=== PATIENT | female | born 1945 | race Caucasian/White ===

== ENCOUNTER → 2024-12-12 | Outpatient (CLI) | payer OTHER, MEDICAID, SELFPAY ==
--- NOTE | 2024-12-12 13:00 | XR_ITS ---
Examination: Bone densitometry Date and time of exam:December 12, 2024 1331 hours INDICATIONS: Menopause age 46, personal history rheumatoid arthritis, family history father hip fracture, levothyroxine 20 years Technique: Lumbar spine and hip total bone mineralization values of an calculated. Peak reference and age match control results have been displayed. Findings: Lumbar spine total bone mineralization is1.145 gm/cm2. This is 0.9 standard deviations above peak reference. This is 3.6 standard deviations above age-matched controls. Hip total bone mineralization is 0.874 gm/cm2 This is 1.6 standard deviations below peak reference. This is 1.5 standard deviations above age-matched controls Impression: There is normal mineralization based on lumbar spine measurements. There is osteopenia based on hip measurements
== END | disposition home or self-care (01) ==
PROVIDERS: PCP Family Medicine; Referring Provider Family Medicine; Visit Provider Family Medicine
DX: M85.88 Other specified disorders of bone density and structure, other site (principal)
CPT/HCPCS: 77080

== ENCOUNTER 2025-06-21 19:46 | Emergency (ER) | payer MEDICARE, MEDICAID, SELFPAY ==
[2025-06-21 20:14] VITALS: BP 120/69; PULSE 90; RESP 18; TEMP 36.9; O2SAT 96
--- NOTE | 2025-06-21 20:17 | XR_ITS ---
Examination: Knee, left, 3 views Technique: Knee AP, lateral, oblique 3 views Date and time of exam: June 21, 2025, 23 2 hours INDICATIONS: Patient fell today with injury to the knee, knee pain. FINDINGS: Advanced osteoarthritis medial joint space No fracture 17 mm posterior ossified joint body Moderate to large knee effusion IMPRESSION: No acute fracture Moderate to large knee effusion, seen with internal derangement of the knee
[2025-06-21] MEDS: IBUPROFEN TAB 600 MG TABLET PO (20:26)
--- NOTE | 2025-06-21 21:29 | PD.EDFALL ---
ED Fall Injury RME/HPI General Chief Complaint: Fall Stated Complaint: FELL, LEFT HIP AND KNEE PAIN Time Seen by Provider: 06/21/25 20:15 Source: patient and family Arrival date/time: 06/21/25 19:46 Mode of arrival: wheelchair Limitations: other (Patient is hard of hearing) RME / HPI Location of injury - extremities: Left: knee Severity: moderate Severity scale (1-10): 6 RME / HPI Narrative: This patient is a pleasant 80-year-old female who arrives to the ED today for evaluation left knee pain concerns status post ground-level fall yesterday while at home. Patient had a mechanical fall and landed on her left knee. Caregiver states the patient has not been able to ambulate. Swelling noted at initial evaluation. Patient denies any additional trauma. No head trauma. No blood loss. Related Data Home Medications ?Medication ?Instructions ?Recorded ?Confirmed amitriptyline 25 mg tablet 25 mg PO HS 08/04/23 08/04/23 amlodipine 5 mg tablet 5 mg PO DAILY 08/04/23 08/04/23 aspirin 81 mg capsule,delayed 81 mg PO DAILY 08/04/23 08/04/23 release atorvastatin 20 mg tablet 20 mg PO DAILY 08/04/23 08/04/23 budesonide-formoterol HFA 80 2 puff inhalation BID 08/04/23 08/04/23 mcg-4.5 mcg/actuation aerosol inhaler (Symbicort) cholecalciferol (vitamin D3) 125 125 mcg PO DAILY 08/04/23 08/08/23 mcg (5,000 unit) tablet (Vitamin D3) hydrochlorothiazide 12.5 mg tablet 12.5 mg PO DAILY 08/04/23 08/04/23 levothyroxine 88 mcg tablet 88 mcg PO HS 08/04/23 08/04/23 lisinopril 5 mg tablet 5 mg PO QDAY 08/04/23 08/04/23 omeprazole 40 mg capsule,delayed 40 mg PO DAILY 08/04/23 08/04/23 release acetaminophen 650 mg 650 mg PO HS 08/08/23 08/08/23 tablet,extended release albuterol sulfate 90 mcg/actuation 2 puff inhalation QID PRN 08/08/23 08/08/23 aerosol inhaler Shortness Of Breath Or Wheezing budesonide-formoterol HFA 80 1 puff inhalation BID 08/08/23 08/08/23 mcg-4.5 mcg/actuation aerosol inhaler (Symbicort) Previous Rx's ?Medication ?Instructions ?Recorded acetaminophen 500 mg tablet 500 mg PO Q4H PRN fever or pain 06/21/25 (Tylenol Extra Strength) #30 tabs Allergies Allergy/AdvReac Type Severity Reaction Status Date / Time hydromorphone (From Dilaudid) Allergy Verified 06/21/25 19:48 Sulfa (Sulfonamide Allergy Verified 06/21/25 19:48 Antibiotics) Review of Systems Review of Systems Systems Reviewed: All systems reviewed, normal except as documented Past Medical History Past Medical History NEUROLOGIC: Positive Neurological Disorders and Transient Ischemic Attacks (TIA); Negative Cerebrovascular Accident, Dementia, Alzheimer's Disease, Parkinson's Disease, Brain Tumor, Meningitis, Seizures, Epilepsy, Multiple Sclerosis, Cerebral Palsy, Amyotrophic Lateral Sclerosis (ALS/Cookie Gehrig's), Guillain-Schulenburg Syndrome, Spina Bifida, Paralysis, Peripheral Neuropathy, Britton's Palsy, Subdural Hematoma, Migraine, Head Trauma, Spinal Cord Injury or Traumatic Brain Injury CARDIAC: Positive Cardiac Disorders, Hypercholesterolemia, Aneurysm (5 YEARS AGO TO NECK), Edema (ANKLES) and Hypertension; Negative Myocardial Infarction, Cardiac Arrhythmia, Atrial Fibrillation, Angina, Heart Murmur, Coronary Artery Disease, Atherosclerotic Heart Disease, Peripheral Vascular Disease, Congestive Heart Failure, Congenital Heart Disease, Valvular Heart Disease, Rheumatic Fever, Cardiomyopathy, Pericarditis, Cellulitis, Deep Vein Thrombosis, Hypotension or Varicose Veins RESPIRATORY: Positive Asthma; Negative Chronic Obstructive Pulmonary Disease (COPD), Bronchitis, Emphysema, Pneumonia, Pulmonary Fibrosis, Cystic Fibrosis, Tuberculosis, Pulmonary Embolism, Pulmonary Edema or Sleep Apnea GASTROINTESTINAL: Positive Gastrointestinal Disorders, Diverticulitis and Gastroesophageal Reflux Disease; Negative Hepatitis, Cirrhosis, Pancreatitis, Celiac Disease, Gall Bladder Disease, Gastrointestinal Bleed, Esophageal Varices, Nye's Esophagus, Colitis, Ulcerative Colitis, Diverticulosis, Ulcer, Colorectal Cancer, Irritable Bowel, Crohn's Disease, Obstructive Bowel, Hiatal Hernia, Hemorrhoids or Obesity GENITOURINARY: Positive Genitourinary Disorders (INCONTINENCE) and Kidney Stones; Negative Renal Disease, Polycystic Kidney Disease, Neurogenic Bladder, Inguinal Hernia or Dialysis REPRODUCTIVE: Positive Previous Pregnancies (); Negative Breast Cancer, Endometriosis, Genital Herpes, Gonorrhea, Pelvic Inflammatory Disease, Syphilis or Uterine Prolapse MUSCULOSKELETAL: Positive Musculoskeletal Disorders, Arthritis and Gout; Negative Muscular Dystrophy, Myasthenia Gravis, Marfan's Syndrome, Bone Cancer, Rheumatoid Arthritis, Osteoporosis, Degenerative Disk Disease, Scoliosis, Carpal Tunnel Syndrome, Fibromyalgia, Fractures, Degenerative Joint Disease, Osteomyelitis or Poliovirus ENT: Positive Deafness (HEARING IMPAIRED); Negative Cataracts, Glaucoma, Blind, Retinal Detachment, Macular Degeneration, Ear Infection, Head Trauma or Eye Prosthesis ENDOCRINE: Positive Endocrine Disorders, Hyperthyroidism (THYRID REMOVED) and Systemic Lupus Erythematosus; Negative Diabetes Mellitus Type 1, Diabetes Mellitus Type 2, Hypoglycemia, Magnolia's Syndrome, Hershey's Disease, Hypothyroidism, Parathyroid Disease, Pituitary Disease, Syndrome of Inappropriate Antidiuretic Hormone (SIADH), Adrenal Disease or Graves' Disease HEMATOLOGIC: Negative Blood Disorders, Anemia, Leukemia, Hemophilia, Thalassemia, Sickle Cell Disease or Clotting Problems PSYCHO/SOCIAL: Negative Psychiatric Problems, Schizophrenia, Recreational Drug Use, Bipolar Disorder, Depression, Anxiety, Behavior Problems, Self-Mutilation, Attention Deficit Disorder, Attention Deficit Hyperactivity Disorder, Depression, Post Traumatic Stress Disorder or Eating Disorder OTHER HISTORY: Positive Hospitalization (7 SURGERIES TO EARS.) and Measles; Negative Autoimmune Disease, Down Syndrome, Autism, Developmental Delay, Shingles, Falls, Blood Transfusions, Blood Transfusion Reaction, Anesthesia Reactions, Organ Transplant, Chemotherapy, Radiation Therapy, Hyperbaric Therapy, MRSA, VRSA, Vancomycin-Resistant Enterococci, Human Immunodeficiency Virus (HIV), Chicken Pox, Mumps, Rubella (Frisian Measles), Pertussis, Clostridium Difficile, Cancer, Breast Cancer, Cervical Cancer, Colorectal Cancer, Lung Cancer or Ovarian Cancer Family History FAMILY HISTORY: Positive Family Respiratory Disorders (SIBLINGS FROM LUNG CANCER) and Family Cancer (SIBLINGS PASSED FROM CA); Negative Family Psychiatric Problems, Family Cardiac Disorders, Family Gastrointestinal Problems, Family Surgery or Family Anesthesia Reaction Surgical History SURGICAL: Positive Thyroidectomy; Negative Cardiac Surgery, Open Heart Surgery, Coronary Artery Bypass Graft, Valve Replacement, Vascular Surgery, Coronary Stent, Cardiac Catheterization, Pacemaker, Angiogram, Auto Implanted Cardiovert Defib, Carotid Endarterectomy, Endocrine Surgery, Ear Surgery, Tympanostomy Tube, Eye Surgery, Nose Surgery, Oral Surgery, Tonsillectomy, Adenoidectomy, Cochlear Implant, Corneal Transplant, Throat Surgery, Abdominal Surgery, Tracheostomy, Gastric Bypass Surgery, Gastrostomy, Bowel Surgery, Joint Replacement, Amputation, Open Reduction Internal Fixation, Arthroscopy, Neurologic Surgery, Brain Shunt, Mastectomy, Lumpectomy, Hysterectomy, Tubal Ligation, Section or Organ Transplant Social History SMOKING STATUS: Never smoker ED Exam General Limitations: Present other (Patient is hard of hearing) General appearance: Present alert and in distress (Due to knee pain concerns. Patient declined any narcotic pain medication.) Head Head exam: Present atraumatic Eye Eye exam: Present normal appearance, PERRL and EOMI ENT ENT exam: Present normal exam, normal oropharynx and mucous membranes moist Neck Neck exam: Present normal inspection, full ROM and trachea midline Chest Chest inspection: Present normal inspection and symmetric chest wall rise Respiratory Respiratory exam: Present normal lung sounds bilaterally Cardiovascular Cardiovascular exam: Present regular rate, normal rhythm and normal heart sounds Abdominal Exam Abdominal exam: Present soft and normal bowel sounds Extremities Exam Extremities exam: Present other (Left knee is diffusely tender to palpation throughout the anterior aspect extending into the tibial tuberosity region. Moderate edema noted. Moderate reduced range of motion. Patient has difficulty bearing weight.) Back Exam Back exam: Present normal inspection and full ROM Neurological Exam Neurological exam: Present alert, oriented X3 and CN II-XII intact Psychiatric Psychiatric exam: Present normal affect and normal mood Skin Skin exam: Present warm, dry, intact and normal color Course Quality Measures none Orders Category Date Time Status XR knee LT 3V Stat Exams 06/21/25 20:17 Completed Ibuprofen Tab [Motrin Tab] Med 06/21/25 20:20 Discontinued 600 mg PO X1 ONE As noted above Vital Signs Vital signs: Vital Signs Temperature 98.5 F 06/21/25 20:14 Pulse Rate 90 06/21/25 20:14 Respiratory Rate 18 06/21/25 20:14 Blood Pressure 120/69 06/21/25 20:14 Pulse Oximetry (%) 96 06/21/25 20:14 Oxygen Delivery Method Room Air 06/21/25 20:14 As noted above Fall MDM Narrative MDM Narrative:: Also has performed the ED were evaluated by me personally. Imaging studies of the left knee were unremarkable for any acute fractures. Patient does have some significant effusion and possible internal knee derangement as she was as well as basic joint degeneration. Advised caregiver patient to follow-up with primary care provider for long-term management of some chronic knee pain issues. Patient data External records reviewed:: [facility] previous records Clinical information provided by:: patient and family Social determinants that could affect healthcare access:: none Patient has the following chronic illnesses:: Hypertension How is presenting disease/condition affected by chronic disease/condition?: uneffected by Evaluation data The following diagnostics were reviewed and interpreted by me:: radiology exam(s) Lab and/or radiology exams considered but not ordered:: None Interpretation Summary: Internal knee derangement Medications / Prescriptions Medications or Prescriptions considered but not ordered:: None Medication administrations:: Medication Administration History Discontinued Medications Ibuprofen (Ibuprofen Tab 600 Mg Tablet) 600 mg PO X1 ONE Stop: 06/21/25 20:21 Last Admin: 06/21/25 20:26 Dose: 600 mg Documented By: RICKY As noted above Consultations Consultation(s) initiated? (list below): No Diagnosis Fall Differential Diagnosis: other (Knee contusion, knee fracture) Most likely diagnosis given after review of the tests above:: Knee contusion Admission Indicated Admission indicated?: not indicated Explain why admission is indicated or not indicated:: Unwarranted Admission Request Was there a request for admission?: No Disposition Plan Disposition Plan: Discharge Discharge Attestation Discharge Attestation: The patient and all family members were given an opportunity to ask questions and understood the discharge instructions. Discharge instructions specifically effects, indications for sooner follow up or return to the emergency department, and the expected course of current diagnosis. Patient condition: Stable Discharge Plan Plan Patient Disposition: HOME (Self Care) Prescriptions/Referrals Prescriptions/Med Rec: New acetaminophen [Tylenol Extra Strength] 500 mg tablet 500 mg PO Q4H PRN (Reason: fever or pain) Qty: 30 0RF No Action omeprazole 40 mg Capsule,Delayed Release(Dr/Ec) 40 mg PO DAILY lisinopril 5 mg Tablet 5 mg PO QDAY aspirin 81 mg Capsule,Delayed Release(Dr/Ec) 81 mg PO DAILY atorvastatin 20 mg Tablet 20 mg PO DAILY cholecalciferol (vitamin D3) [Vitamin D3] 125 mcg (5,000 unit) Tablet 125 mcg PO DAILY amitriptyline 25 mg Tablet 25 mg PO HS hydrochlorothiazide 12.5 mg tablet 12.5 mg PO DAILY Patient Comments: TAKE 1/2 (ONE-HALF) TABLET BY MOUTH ONCE DAILY Rx Instructions: 1/2 tablet daily amlodipine 5 mg Tablet 5 mg PO DAILY levothyroxine 88 mcg Tablet 88 mcg PO HS budesonide-formoterol [Symbicort] 80-4.5 mcg/actuation Hfa Aerosol Inhaler 2 puff INHALATION BID acetaminophen 650 mg Tablet Extended Release 650 mg PO HS albuterol sulfate 90 mcg/actuation Hfa Aerosol Inhaler 2 puff INHALATION QID PRN (Reason: Shortness Of Breath Or Wheezing) budesonide-formoterol [Symbicort] 80-4.5 mcg/actuation Hfa Aerosol Inhaler 1 puff INHALATION BID Referrals: Edna Hayes PA-C [Primary Care Provider] - In 1 week Problem List Clinical Impression: Internal derangement of knee Patient/Caregiver Discharge Instructions Education Materials: How Your Knee Works Additional Instructions: Medication as needed for symptomatic relief. Patient should follow-up with primary care provider for discussions related to today's visit and long-term management of what appears to be turning into chronic knee pain concerns. Print Language: Macedonian Stand Alone Forms: Madeleine Award Info., Patient Portal Info Letter
== END 2025-06-21 21:44 | disposition home or self-care (01) ==
PROVIDERS: Emergency Provider Physician Assistant; PCP Physician Assistant Medical
DX: S83.105A Unspecified dislocation of left knee, initial encounter (principal); W19.XXXA Unspecified fall, initial encounter
CPT/HCPCS: 73562; 99282; A9270